=== PATIENT | female | born 1965 | race Caucasian/White ===

== ENCOUNTER 2016-10-25 17:14 | Emergency (ER) | payer MEDICARE, MEDICAID ==
[2016-10-25] MEDS ORDERED: CYCLOBENZAPRINE HCL 10 MG TAB PO ONE (17:36)
[2016-10-25] MEDS ORDERED: KETOROLAC TROMETHAMINE INJ 30 MG/ML VIAL IM ONE (17:36)
--- NOTE | 2016-10-25 17:39 | ED.PDOC ---
History of Present Illness - General Chief Complaint: Back Pain or Injury Stated Complaint: Left hip pain "all the way across" Time Seen by Provider: 10/25/16 17:25 Source: patient Exam Limitations: no limitations - History of Present Illness Initial Comments: the patient is a 50-year-old female with chronic low back pain and chronic recurrent headaches.the patient experienced a recurrence of her chronic low back pain to her left lower back today while at [facility] and being arrested for shoplifting. The patient was brought in by EMS. The patient is already taking opiates and benzodiazepines from her primary care doctor. She is also taking gabapentin already. He is getting her set up with chronic pain management. The pain is typical for her pain exacerbations. No other new issues. No recent trauma. Timing/Duration: unsure Severity: moderate Improving Factors: immobilization Worsening Factors: movement Associated Symptoms: denies symptoms Review of Systems - Review of Systems Constitutional: States: no symptoms reported EENTM: States: no symptoms reported Respiratory: States: no symptoms reported Cardiology: States: no symptoms reported Gastrointestinal/Abdominal: States: no symptoms reported Genitourinary: States: no symptoms reported Musculoskeletal: States: see HPI, back pain Skin: States: no symptoms reported Neurological: States: no symptoms reported - she apparently does have chronic sciatica on the right side which is firing some at this moment. Endocrine: States: no symptoms reported All other Systems: No Change from Baseline Family Medical History - Family History Father Living Status: Physical Exam - Physical Exam General Appearance: Alert Eye Exam: bilateral normal Ears, Nose, Throat: normal ENT inspection, normal pharynx Neck: full range of motion, supple Respiratory: lungs clear, normal breath sounds, no respiratory distress, no accessory muscle use Cardiovascular/Chest: normal peripheral pulses, regular rate, rhythm, no edema Peripheral Pulses: radial,right: 2+, radial,left: 2+ Gastrointestinal/Abdominal: non tender, soft - obese Rectal Exam: deferred Back Exam: other - the patient has allergies to palpation over the paraspinal muscles adjacent to the left of the spine from L2-L5. She does have scoliosis. No evidence of any new trauma. Extremity: normal range of motion, non-tender, normal inspection, no pedal edema , normal capillary refill Neurologic: alert, oriented x 3, depressed affect Skin Exam: normal color Comments: Vital Signs - 24 hr 10/25/16 17:29 Temperature 96.9 F L Pulse Rate [ 78 Apical] Respiratory 22 Rate Blood Pressure 70/37 [Right Arm] O2 Sat by Pulse 97 Oximetry Progress - Progress Progress: 10/25/16 19:55 The patient is a 50-year-old female with a long-standing history of chronic pain and recurrent headaches. She was recently restarted on her hydrocodone by her primary care doctor. The [facility] and quickly started complaining of back pain and headache. the patient puts on an extensive display of pain until no one is looking, then she relaxes nicely. When the patient thought she was no longer going to [facility] she wanted to leave AGAINST MEDICAL ADVICE. Once she relies she was going into custody after leaving the hospital she decided she wanted medical care. The patient received a dose of Toradol and Flexeril here for her acute on chronic back pain. She has had no recent trauma. The pain is typical for her. The patient did receive a liter of IV fluids. She also received insulin for mild hyperglycemia. She is noncompliant with her diabetes. The patient needs to keep well-hydrated. The patient is stable at this time for discharge. She needs to follow up with her primary care doctor next week. ER warnings were given. - Results/Orders Results/Orders: Laboratory Last Values WBC 10.9 K/mm3 (4.8-10.8) H 10/25/16 19:20 RBC 4.37 M/mm3 (4.20-5.40) 10/25/16 19:20 Hgb 13.5 gm/dL (12.0-16.0) 10/25/16 19:20 Hct 40.1 % (36.0-47.0) 10/25/16 19:20 MCV 91.9 fl (81.0-99.0) 10/25/16 19:20 MCH 30.8 pg (27.0-31.0) 10/25/16 19:20 MCHC 33.5 g/dL (33.0-37.0) 10/25/16 19:20 RDW 13.9 % (11.5-14.5) 10/25/16 19:20 Plt Count 227 K/mm3 (130-400) 10/25/16 19:20 MPV 9.8 fl (7.40-10.4) 10/25/16 19:20 Absolute Neuts (auto) 5.20 K/uL (1.8-6.8) 10/25/16 19:20 Absolute Lymphs (auto) 4.20 K/uL (1.0-3.4) H 10/25/16 19:20 Absolute Monos (auto) 1.00 K/uL (0.2-0.8) H 10/25/16 19:20 Absolute Eos (auto) 0.40 K/uL (0.0-0.4) 10/25/16 19:20 Absolute Basos (auto) 0.10 K/uL (0.0-0.1) 10/25/16 19:20 Neutrophils % 47.7 % (42.0-78.0) 10/25/16 19:20 Lymphocytes % 38.4 % (20.0-50.0) 10/25/16 19:20 Monocytes % 8.9 % (2.0-9.0) 10/25/16 19:20 Eosinophils % 4.0 % (1.0-5.0) 10/25/16 19:20 Basophils % 1.0 % (0.0-2.0) 10/25/16 19:20 Sodium 135 mmol/L (135-145) 10/25/16 19:20 Potassium 4.3 mmol/L (3.6-5.0) 10/25/16 19:20 Chloride 99 mmol/L (101-111) L 10/25/16 19:20 Carbon Dioxide 28 mmol/L (21-31) 10/25/16 19:20 Anion Gap 12.3 (12-18) 10/25/16 19:20 BUN 26 mg/dL (7-18) H 10/25/16 19:20 Creatinine 1.82 mg/dL (0.6-1.3) H 10/25/16 19:20 BUN/Creatinine Ratio 14.3 (10-20) 10/25/16 19:20 Random Glucose 322 mg/dL (70-105) H 10/25/16 19:20 Serum Osmolality 287.3 mOsm/L (275-295) 10/25/16 19:20 Calcium 9.6 mg/dL (8.4-10.2) 10/25/16 19:20 Magnesium 1.6 mg/dL (1.8-2.5) L 10/25/16 19:20 Total Bilirubin 0.4 mg/dL (0.2-1.0) 10/25/16 19:20 AST 18 IU/L (10-42) 10/25/16 19:20 ALT 12 IU/L (10-60) 10/25/16 19:20 Alkaline Phosphatase 79 IU/L (42-121) 10/25/16 19:20 Serum Total Protein 7.2 gm/dL (6.4-8.2) 10/25/16 19:20 Albumin 3.9 g/dl (3.2-5.5) 10/25/16 19:20 Globulin 3.3 gm/dL (2.3-3.5) 10/25/16 19:20 Albumin/Globulin Ratio 1.2 (1.1-1.9) 10/25/16 19:20 Departure - Departure Clinical Impression: Chronic low back pain, Noncompliance with diabetes treatment Disposition: Discharge to Home or Self Care Condition: Fair Departure Forms: ED Discharge - Pt. Copy, Patient Portal Self Enrollment Instructions: DI for Low Back Pain Diet: diabetic diet Activity: increase activity as tolerated Referrals: JIM SANCHEZ [Primary Care Provider] - 1-2 Weeks Additional Instructions: the patient is a 50-year-old female presenting with acute on chronic back pain. She received a dose of Flexeril and Toradol here. She needs to follow up with her primary care doctor early next week. ER warnings were given for any acute worsening. She also needs to control her diabetes better. She needs to increase her fluid intake.
[2016-10-25] MEDS ORDERED: LACTATED RINGERS 1,000 ML IVS ONE (18:03)
[2016-10-25] MEDS ORDERED: INSULIN, REG.(HUMAN) 100 U/ML VIAL SUBCU ONE (19:50)
[2016-10-25 20:54] VITALS: O2SAT 98
[2016-10-25 20:55] VITALS: TEMP 98.2
[2016-10-25 20:57] VITALS: BP 98/58
== END 2016-10-25 21:04 | disposition home or self-care (01) ==
LOC: ER 17:14
DX: G89.29 Other chronic pain (principal); M54.5 Low back pain; E11.65 Type 2 diabetes mellitus with hyperglycemia; Z91.14 Patient's other noncompliance with medication regimen; Z79.899 Other long term (current) drug therapy
CPT/HCPCS: 36415; 80053; 83735; 85025; J1885; J7120